=== PATIENT | female | born 1965 | race Caucasian/White ===

== ENCOUNTER 2018-01-11 11:51 | Day surgery (SDC) | payer BC, SELFPAY ==
[2018-01-11 12:27] LABS: Internal QC Validated? YES +Cl - CLEAR BKGD; Pregnancy, Urine Negative Negative
[2018-01-11 12:30] LABS: Hematocrit 33.2 % (37-47); Mean Corp Hgb Conc 30.1 g/gl (32-36); Mean Corpuscular Hgb 24.8 pg (27.0-32.0); Mean Corpuscular Volume 82.2 fL (81-99); Mean Platelet Vol. 9.4 fl (6.2-12.0); Platelet Count 296 K/mm3 (150-450); RBC Distribution Width CV 15.5 % (11.6-14.6); RBC Distribution Width SD 46.4 fl (35.1-43.9); Red Blood Count 4.04 M/mm3 (4.2-5.4); White Blood Count 6.9 K/mm3 (4.4-11.0)
[2018-01-11 12:31] LABS: Scan Indicated on CBC? Y/N NO
[2018-01-11 12:35] VITALS: BP 104/90; PULSE 82; RESP 16; TEMP 36.9; O2SAT 97; BMI 47.9
[2018-01-11] MEDS: Gabapentin 600 MG Tablet PO (12:42)
[2018-01-11] MEDS: Acetaminophen 500 MG Tablet 1000 MG PO (12:42)
[2018-01-11] MEDS: Celecoxib 200 MG Capsule PO (12:42)
[2018-01-11] MEDS: Ondansetron 8 MG Tablet PO (12:42)
--- NOTE | 2018-01-11 14:20 | EMB_PTH ---
PATIENT: CARLENE NUÑEZ [place] [facility] [place][id number] AGE/SX: 52/F ROOM: RE01/11/[address]: Dr. Brea Paredes MD : 1965 BED: DIS: 01/11/2018 SPEC #: [id number] RECD: 01/12/18 09:09 STATUS: SHAKIRA TREJOLizabeth #: [id number] STEVE: 01/11/18 14:[address]: Brea Paredes DEPT: SURGICAL PATHOLOGY RECD BY: Leo Singh ENTERED: 01/12/18 11:13 SP TYPE: ENDOM BX/C LISA DR: Dr. Rl Hughes MD Tissues: Endometrium, NOS Procedures: Surgery Specimen Level IV HEADER OPERATION: Hysteroscopy, Rayne D & Leyla PRE-OP DIAGNOSIS: Menorrhagia TISSUE SUBMITTED: Endometrial curettings MICROSCOPIC DIAGNOSIS Endometrium, curettings: Secretory endometrium. Rare strips of benign superficial endocervix and ectocervix. AM:eneida 01/15/18 MICROSCOPIC DESCRIPTION Slides are reviewed. GROSS DESCRIPTION Received in fixative is one container labeled with the patient's name and designated endometrial curettings. The specimen consists of multiple irregular fragments of sierra soft tissue that in aggregate measure 3 x 2.5 x 0.3 cm. The specimen is totally submitted in one cassette. / SJ:eneida 01/12/18 TC:5 CPT: 36532
--- NOTE | 2018-01-11 15:01 | PCM.OPRPT ---
Report of Operation Date of Procedure: 01/11/18 Pre-Operative Diagnosis: menorrhagia, intramural uterine fibroids Post-Operative Diagnosis: same Surgery/Procedure Performed:: Hysteroscopy D&C with Rayne endometrial ablation Description of Surgical Findings:: lush endometrium, normal tubal ostia, normal cervix, no discrete intrauterine pathology food checkers and cashiers supervisor: None Type of Anesthesia:: MAC/Supplemental/Local Anesthesiologist: Manda Santiago Special Medications: none Specimen's removed: endometrial curettings Drains: none Estimated Blood Loss (mL): 20cc Fluids Replaced: 700 cc LR Description of Procedure: The patient was taken to the OR where she was prepped and draped in dorsal lithotomy position. The weighted speculum was placed in the vagina and the anterior lip of the cervix was grasped with a single-tooth tenaculum. A paracervical block was administered with 1% lidocaine with 1-100,000 epinephrine solution. The cervix was dilated serially with Hegar dilators. The 5mm hysteroscope was placed into the uterine cavity and the above findings were noted. Bilateral tubal ostia were identified. The uterus sounded to 9.5 cm and the cervical length was 4 cm. The endometrial cavity length was 5.5 cm. The hysteroscope was removed. A gentle sharp curettage was done of the uterine cavity. The specimen was handed off and sent to pathology. The Rayne device was set to 5.5 cm. The instrument was then seated into the endometrial cavity and the indicator was in the green. The cervical seal balloon was inflated and the uterine integrity test was passed. The ablation procedure was initiated and completed without interruption. During the ablation procedure gentle traction was held on the tenaculum and the Rayne device was held up against the uterine fundus. When the ablation procedure was completed the Rayne was removed. The tenaculum was removed and the tenaculum site was noted to be hemostatic. All sponge and needle counts were correct. A vaginal sweep was performed by me. The patient was awakened and taken to the recovery room in stable condition. Hysteroscopic ins: 160cc normal saline Hysteroscopic outs:100cc Findings: Endometrial cavity: No fibroids or discrete polyps noted. There was lush endometrium. Cervix: normal Vagina: normal Grafts/Implants Used: none - Complications none - Admit VTE Documentation VTE Present on Admission: No VTE Mechan Device Prophylaxis: SCD's VTE Pharm Prophylaxis ordered?: No Reason prophylaxis not ordered:: Procedure Not Indicated
--- NOTE | 2018-01-11 15:04 | PCM.DC.D&C ---
Discharge Diet: No Restrictions Discharge Activity: Return to Normal Activity, May Shower, May Take a Tub Bath - in 2 weeks. Call your doctor if you observe: Fever of 101 or Higher, Inability to have a bowel movement, Using more than one pad per hour - for 2 hrs in a row, Uncontrolled pain, - - foul smelling discharge Allergies/Adverse Reactions: Allergies Sulfa (Sulfonamide Antibiotics) Allergy (Verified 01/04/18 14:31) Nausea Medications to take at Discharge Fluticasone 0.05% [Flonase Nasal [place]] 2 spray NASAL DAILY 01/04/18 Lorazepam [Ativan] 0.5 mg PO TID PRN PRN 01/04/18 MedroxyPROGESTERone [Provera] 2.5 mg PO DAILY 01/04/18 Omeprazole 40 mg PO DAILY 01/04/18 Venlafaxine XR [Effexor Xr] 150 mg PO DAILY 01/04/18 Primary Care Physician: Rl Hughes [Primary Care Provider] - Test Results: Test results from this visit will be discussed in further detail at your follow-up appointment, if applicable. Please Follow Up With: Brea Paredes MD - [phone] When: 4 weeks or as needed
[2018-01-11 15:09] VITALS: BP 104/90; BP 132/77; PULSE 74; RESP 18; TEMP 36.6; O2SAT 100
[2018-01-11 15:15] VITALS: BP 104/90; BP 134/81; PULSE 68; RESP 18; O2SAT 100
[2018-01-11 15:20] VITALS: BP 104/90; BP 123/73; PULSE 70; RESP 18; O2SAT 100
[2018-01-11 15:24] VITALS: BP 104/90; BP 139/68; PULSE 66; RESP 18; TEMP 36.5; O2SAT 100
[2018-01-11 15:57] VITALS: BP 104/90
== END 2018-01-11 15:59 | disposition home or self-care (01) ==
LOC: SDC 11:53 → AC 11:54
PROVIDERS: Family Provider Family Medicine; PCP Family Medicine; Visit Provider Obstetrics & Gynecology
PROC: 0U5B8ZZ Destruction of Endometrium, Via Natural or Artificial Opening Endoscopic (ICD-10-PCS; CPT 58558; principal; 2018-01-11 14:05)
DX: D25.1 Intramural leiomyoma of uterus (principal); N92.0 Excessive and frequent menstruation with regular cycle; F41.9 Anxiety disorder, unspecified; K21.9 Gastro-esophageal reflux disease without esophagitis; Z79.899 Other long term (current) drug therapy
CPT/HCPCS: 58558; 81025; 85027; 88305; J7120; J2405

== ENCOUNTER 2018-03-04 16:02 | Emergency (ER) | payer BC, SELFPAY ==
[2018-03-04 16:02] VITALS: BP 166/94; PULSE 100; RESP 18; TEMP 37.1; O2SAT 98; BMI 47.8
--- NOTE | 2018-03-04 16:14 | NURSING ---
NO OLD EKGS
[2018-03-04] MEDS: Ipratropium/Albuterol Sulfate 3 ML AMPUL.NEB INHALATION (16:59)
[2018-03-04 17:00] VITALS: PULSE 87; RESP 18
[2018-03-04 17:20] LABS: Absolute Lymphocyte Count 2.36 X10^3/ul (0.83-4.51); Absolute Neutrophil Count 6.5 X10^3/uL (2.0-7.7); Basophil# 0.03 X10^3/uL; Basophil% 0.3 % (0-1); Eosinophil# 0.26 X10^3/uL; Eosinophils% 2.7 % (0-5); Hematocrit 29.5 % (37-47); Hemoglobin 9.2 g/dl (12.0-15.0); Lymphocyte # 2.36 X10^3/ul (4.0); Lymphocyte % 24.3 % (19-41); Mean Corp Hgb Conc 31.2 g/gl (32-36); Mean Corpuscular Hgb 25.4 pg (27.0-32.0); Mean Corpuscular Volume 81.5 fL (81-99); Mean Platelet Vol. 9.4 fl (6.2-12.0); Monocyte# 0.53 X10^3/uL; Monocyte% 5.5 % (0-10); Neutrophil # 6.48 X10^3/uL (2.7-7.7); Neutrophil % 66.7 % (47-70); Platelet Count 280 K/mm3 (150-450); RBC Distribution Width CV 16.3 % (11.6-14.6); RBC Distribution Width SD 47.4 fl (35.1-43.9); Red Blood Count 3.62 M/mm3 (4.2-5.4); White Blood Count 9.7 K/mm3 (4.4-11.0)
[2018-03-04 17:21] LABS: POSITIVE COUNT NO; POSITIVE DIFFERENTIAL NO; POSITIVE MORPHOLOGY NO
--- NOTE | 2018-03-04 17:23 | RAD_ITS ---
STUDY: X-RAY CHEST REASON FOR EXAM: Female, 52 years old. Cough, chest pain. TECHNIQUE: PA and lateral views of the chest on 3 images. COMPARISON: None. FINDINGS: The lungs are clear and expanded. There is no demonstrated pleural abnormality. Normal size heart. Normal mediastinum and neno. Normal visualized pulmonary arteries. Normal visualized aortic arch and descending thoracic aorta. Normal visualized thoracic spine. Normal visualized ribs, clavicles, and shoulders. There is no demonstrated abnormality of the visualized soft tissue structures of the upper abdomen. RAD/Chest PA and Lateral IMPRESSION: Normal x-ray examination of the chest. Electronically Signed: Lloyd Echeverria MD at 18:12 EDT , Service support ,
[2018-03-04 17:34] LABS: International Normalized Ratio 1.1; Prothrombin Time (Protime)PT. 13.7 SECONDS (11.7-14.9)
[2018-03-04 17:37] LABS: Anion Gap 7 (5-15); BUN 12 mg/dL (7-18); BUN/Creat Ratio 14.4 RATIO (10-20); Calcium,Total 8.4 mg/dL (8.5-10.1); Chloride 105 mmol/L (98-107); Creatinine, Serum 0.84 mg/dL (0.55-1.02); EST Glomerular Filtration Rate 76 mL/min (>60); Est Glom Filt Rate - Afr Amer 92 mL/min (>60); Estimated Creatinine Clearance 65.54 ml/min; Glucose 106 mg/dL (74-106); Potassium 3.5 mmol/L (3.5-5.1); Sodium Level 139 mmol/L (136-145)
[2018-03-04 17:52] LABS: D-Dimer Quantitative (DVT/PE) 0.36 FEU/ug/m (0.27-0.49)
--- NOTE | 2018-03-04 18:48 | ED.DCSUM_ITS ---
- ER Visit Summary Date of Service: 03/04/18 Chief Complaint: Chest pain History of Present Illness: The patient is a 52 F who presents with chest pain. He initially began have URI/sinusitis and UTI symptoms about 1 week ago. She was started on Cipro. She complains of some sinus pressure and ear pain. She is also had some tightness across her lower chest and at times in the left upper chest although she is not certain if this is related to strain from her coughing. She did have an endometrial ablation about 2 weeks ago. No prior history of DVT or pulmonary embolism. Physical Examination: Afebrile initial heart rate 100 vitals otherwise unremarkable Moist mucous membranes Heart regular rate and rhythm Scattered expiratory wheezing no rales no rhonchi no respiratory distress or retractions Abdomen soft Alert Test Results: Labs unremarkable except hemoglobin 9.2. D-dimer is normal. Chest x-ray is normal. Emergency Department Course and Treatment: Patient was given a DuoNeb aerosol here. Given report of chest pain with recent surgery we did check a d-dimer which was normal. The patient's history and physical examination are more suggestive of a viral bronchitis. There is no evidence of pneumonia. I do not believe she needs another course of antibiotics. We will give her a prescription for prednisone and an albuterol inhaler. She was advised to follow -up as an outpatient with her primary care physician and to return for new or worsening symptoms. She was discharged. Treatment Plan: [] Disposition: Discharge Impression: Bronchitis This note was generated with [employer] dictation software. It may contain incorrect words, spelling, and punctuation that were not noted in review of the chart prior to signing ED Disposition - Plan for ED Patient: Chief Complaint: Chest Other Referrals: Rl Hughes [Primary Care Provider] -
--- NOTE | 2018-03-04 18:49 | ED.DEP ---
ED Disposition - Plan for ED Patient: Chief Complaint: Chest Other Instructions: Acute Bronchitis Prescriptions: Albuterol Inhaler [Ventolin Hfa] 1 - 2 puff INHALATION Q4H PRN PRN #1 inhaler PRN Reason: Wheezing Prednisone [Deltasone] 60 mg PO DAILY #15 tab Referrals: Rl Hughes [Primary Care Provider] -
[2018-03-04 18:59] VITALS: BP 147/97; PULSE 92; RESP 16; O2SAT 97
== END 2018-03-04 19:00 | disposition home or self-care (01) ==
LOC: ED 17:55
PROVIDERS: Emergency Provider Emergency Medicine; Family Provider Family Medicine; PCP Family Medicine
DX: J40 Bronchitis, not specified as acute or chronic (principal)
CPT/HCPCS: 71046; 80048; 85025; 85379; 85610; 94640; 99283; A4216